=== PATIENT | female | born 1945 | race Caucasian/White ===

== ENCOUNTER → 2023-11-13 22:00 | Outpatient (REF) | payer MEDICARE, SELFPAY | LOC: DHSLP 22:00 | PROVIDERS: ATTENDING PHYSICIAN Internal Medicine Critical Care Medicine; FAMILY PHYSICIAN Family Medicine | DX: G47.33 Obstructive sleep apnea (adult) (pediatric) (principal); R09.02 Hypoxemia | CPT/HCPCS: 95800 ==

== ENCOUNTER 2024-03-01 10:49 | Emergency (ER) | payer MEDICARE, SELFPAY ==
[2024-03-01 11:01] VITALS: BP 137/76
[2024-03-01 11:18] VITALS: BP 136/82
--- NOTE | 2024-03-01 11:38 | ED.GENMED ---
History of Present Illness
General
Chief Complaint: Breathing Problem
Source: patient
Exam Limitations: none
Time Seen by Provider: 03/01/24 11:26
History of Present Illness
History of Present Illness:
78-year-old female with remote history of pneumonia and asthma presents with progressively worsening dyspnea on exertion over the past week. She also notes occasional chest pressure. She has been coughing. She thinks he may have had a fever at
the onset of her symptoms but has not had one recently. She denies any leg swelling or calf pain. No vomiting. No hemoptysis. She is accompanied by her friend. No other complaints at this
Past History
Past History
ED Past Medical History: Asthma, GERD, HTN, Hypothyroidism, Psychiatric and Other (Mitral valve prolapse, Vertigo)
ED Past Surgical History: None
Social History
Tobacco: Non-smoker
Alcohol: None
Drug: None
Personal: Single
Living: alone
Phy Exam
Physical Exam
Physical Exam:
General: Well-appearing nontoxic female no acute respiratory distress
HEENT: Normocephalic atraumatic
Heart: Regular rate and rhythm
Lungs: Subtle end expiratory wheeze bilaterally
Extremities: No cyanosis or edema skin: Warm no rash
Scores
Heart Failure Risk
Heart Failure Risk Score: Not Applicable
Course
Orders/Labs/Results
Orders:
Orders
03/01/24 10:51
Electrocardiogram (*1) Urgent
Reason for Study: Shortness of Breath
EKG- Treatment ONCE
03/01/24 11:36
CT Chest Pe Study Urgent
Comment:
Reason For Exam: sob, chest pressure
Ipratropium/Albuterol Sulfate [Duoneb] 3 ml INH R NOW STA
03/01/24 11:50
Complete Blood Count/With Diff Urgent
Comprehensive Metabolic Panel Urgent
NT-proBNP Urgent
Troponin I Urgent
03/01/24 11:57
Diphenhydramine [Benadryl] 50 mg IV NOW STA
Hydrocortisone Sod Succinate [Solu-Cortef] 200 mg IV NOW STA
Abnormal Lab Results
03/01/24
11:50
MCH 32.1 H pg
(27.0-31.0)
Absolute Monos (auto) 0.7 H 10^3/uL
(0.1-0.6)
Monocytes % 11.7 H %
(1.7-9.3)
BUN 24 H mg/dl
(7-17)
Glucose 109 H mg/dl
(70-99)
03/01/24 11:50
03/01/24 11:50
Vital Signs
Initial and Last Documented VS:
Initial Vital Signs
Temp Pulse Resp BP Pulse Ox
97.9 F 76 20 137/76 95
03/01/24 11:01 03/01/24 11:01 03/01/24 11:01 03/01/24 11:01 03/01/24 11:01
Last Documented Vital Signs
Temp Pulse Resp BP Pulse Ox
97.9 F 74 32 112/75 94
03/01/24 11:01 03/01/24 15:00 03/01/24 15:00 03/01/24 15:00 03/01/24 15:00
MDM/Problems Addressed
Differential Diagnosis Includes:
Shortness of breath with exertion. Differential could include asthma versus COPD versus heart failure vs PE.
EKG shows sinus rhythm without ischemic changes. Do not suspect ACS but troponin is pending. BNP pending. Will order PE study
*Critical Care Note
Total Time (30-74mins, 75-104mins- exclusive of procedures): Not Applicable
Update Note
Update Note:
Patient reevaluated. She is feeling much better after the DuoNeb. No reaction noted with CT with IV contrast after getting pretreated. CT demonstrates no pulmonary embolism. Or pneumonia. Suspect underlying flare of asthma or COPD. There is no
respiratory distress here she is not hypoxic. Will advise she use her inhaler. Will also prescribe 5 days of prednisone. Advise she follow-up with her doctor. No indication for admission
ED Attending Note
-
Portions of this chart may have been created with voice recognition software.� Occasional wrong word or��sound alike� substitutions may have occurred due to the inherent limitations of voice recognition software.
Discharge Plan
Departure
Patient Disposition: Home (Routine Discharge)
Date of Disposition: 03/01/24
Time of Disposition: 15:22
Patient with high blood pressure during this ER visit?: No
Discharge Problem:
Acute bronchitis
Instructions: Exacerbation of COPD (DC)
Prescriptions:
New
prednisone 20 mg tablet
40 mg PO DAILY 5 Days Qty: 10 0RF
No Action
levothyroxine 75 MCG tablet
75 mcg PO DAILY
albuterol sulfate 2.5 MG/3 ML solution for nebulization
1 - 2 puff PUFF PRN PRN (Reason: sob)
diltiazem HCl [Cardizem CD] 180 MG capsule,extended release 24hr
180 mg PO DAILY
omeprazole 20 MG tablet,delayed release (DR/EC)
20 mg PO DAILY
prednisone 50 MG tablet
50 mg PO DAILY Qty: 4 0RF
benzonatate 100 MG capsule
100 mg PO TIDPRN PRN (Reason: cough) Qty: 14 0RF
albuterol sulfate [Proventil HFA] 90 MCG/PUFF HFA aerosol inhaler
1 puff inhalation Q4HPRN PRN (Reason: shortness of breath) Qty: 0 0RF
methylprednisolone [Medrol (Link)] 4 mg tablets,dose pack
See Rx Instructions .ROUTE .COMPLEX Qty: 21 0RF
Rx Instructions:
orally per package directions
albuterol sulfate 90 mcg/actuation aerosol powdr breath activated
2 inh inhalation QID PRN (Reason: shortness of breath or wheezing) Qty: 1 0RF
prednisone 20 mg tablet
40 mg PO DAILY 4 Days Qty: 8 0RF
Referrals:
UNKNOWN - PT DOES,NOT KNOW [Family Provider] -
Activity Restrictions/Additional Instructions:
Use prednisone as directed. Use inhaler up to 4 times a day as needed for shortness of breath. Return if worse otherwise follow-up with your doctor
Interventions
Interventions:
ED- Cardiac Assessment Last Done: 03/01/24 12:56
ED- Pulmonary Assessment Last Done: 03/01/24 12:56
Discharge Date and Time
Print Language: PERSIAN
[2024-03-01] MEDS: DUONEB 3 ML INH (11:47)
[2024-03-01 11:57] LABS: % Basophils 0.5 % (0-2); % Eosinophils 4.7 % (0-6); % Immature Granulocytes 0.2 % (0-0.5); % Lymphocytes 24.6 % (20.5-51.1); % Monocytes 11.7 % (1.7-9.3); % Neutrophils 58.3 % (42.2-75.2); Absolute Eosinophils 0.3 10^3/uL (0-0.7); Absolute Lymphocytes 1.4 10^3/uL (1.2-3.4); Absolute Monocytes 0.7 10^3/uL (0.1-0.6); Absolute Neutrophils 3.3 10^3/uL (1.4-6.5); Mean Corp Hgb Conc. 35.7 g/dL (33.0-37.0); Mean Corpuscular Hgb 32.1 pg (27.0-31.0); Mean Corpuscular Volume 89.7 fL (81.0-99.0); Mean Platelet Volume 8.8 fL (7.4-10.4); Nucleated Red Blood Cells % 0 %; Platelet Count 207 10^3/uL (130-400); Red Blood Cell Count 4.68 10^6/uL (4.20-5.40); Red Cell Dist. Width 12.4 % (11.5-14.5); White Blood Cell Count 5.7 10^3/uL (4.8-10.8)
[2024-03-01 12:00] VITALS: BP 116/73
[2024-03-01] MEDS: BENADRYL 50 MG IV (12:01)
[2024-03-01] MEDS: SOLU-CORTEF 200 MG IV (12:02)
[2024-03-01 12:11] LABS: ALT (SGPT) 22 U/L (0-35); AST (SGOT) 28 U/L (14-36); Alkaline Phosphatase 84 U/L (38-126); Blood Urea Nitrogen 24 mg/dl (7-17); Calcium 9.3 mg/dl (8.4-10.2); Carbon Dioxide 23 mmol/L (22-30); Chloride 107 mmol/L (98-107); Glucose 109 mg/dl (70-99); Potassium 4.2 mmol/L (3.5-5.1); Sodium 140 mmol/L (135-145); Total Bilirubin 0.6 mg/dl (0.2-1.3); Total Protein 6.6 g/dl (6.3-8.2); eGFR > 60.00
[2024-03-01 12:21] LABS: NT-proBNP < 20.0 pg/ml; Troponin I < 0.012 ng/ml
[2024-03-01 13:52] VITALS: BP 129/89
[2024-03-01 14:00] VITALS: BP 136/82
[2024-03-01 15:00] VITALS: BP 112/75
== END 2024-03-01 15:35 | disposition home or self-care (01) ==
LOC: EMR 10:49
PROVIDERS: Physician Assistant; EMERGENCY PHYSICIAN Student in an Organized Health Care Education/Training Program
DX: J20.9 Acute bronchitis, unspecified (principal); E03.9 Hypothyroidism, unspecified; I10 Essential (primary) hypertension; J45.909 Unspecified asthma, uncomplicated; K21.9 Gastro-esophageal reflux disease without esophagitis
CPT/HCPCS: 94640; 96374; 96375; 99284; 71275; 80053; 83880; 84484; 85025; 93005; Q9967

== ENCOUNTER 2024-04-26 22:06 | Observation (INO) | payer MEDICARE, SELFPAY ==
[2024-04-26 15:14] VITALS: BP 138/76
[2024-04-26 15:45] LABS: % Basophils 0.3 % (0-2); % Eosinophils 3.1 % (0-6); % Immature Granulocytes 0.3 % (0-0.5); % Lymphocytes 25.1 % (20.5-51.1); % Monocytes 18.5 % (1.7-9.3); % Neutrophils 52.7 % (42.2-75.2); Absolute Eosinophils 0.2 10^3/uL (0-0.7); Absolute Lymphocytes 1.5 10^3/uL (1.2-3.4); Absolute Monocytes 1.1 10^3/uL (0.1-0.6); Hematocrit 48.8 % (37.0-47.0); Hemoglobin 16.9 g/dL (12.0-16.0); Mean Corp Hgb Conc. 34.6 g/dL (33.0-37.0); Mean Corpuscular Hgb 31.5 pg (27.0-31.0); Mean Platelet Volume 9.4 fL (7.4-10.4); Nucleated Red Blood Cells % 0 %; Platelet Count 227 10^3/uL (130-400); Red Blood Cell Count 5.36 10^6/uL (4.20-5.40); Red Cell Dist. Width 12.7 % (11.5-14.5); White Blood Cell Count 5.8 10^3/uL (4.8-10.8)
[2024-04-26 16:04] LABS: ALT (SGPT) 29 U/L (0-35); AST (SGOT) 31 U/L (14-36); Albumin 4.6 g/dl (3.5-5.0); Alkaline Phosphatase 86 U/L (38-126); Blood Urea Nitrogen 27 mg/dl (7-17); Calcium 9.3 mg/dl (8.4-10.2); Carbon Dioxide 14 mmol/L (22-30); Chloride 107 mmol/L (98-107); Glucose 117 mg/dl (70-99); Potassium 3.8 mmol/L (3.5-5.1); Sodium 136 mmol/L (135-145); Total Bilirubin 0.5 mg/dl (0.2-1.3); Total Protein 7.3 g/dl (6.3-8.2); eGFR > 60.00
--- NOTE | 2024-04-26 19:15 | ED.GENMED ---
History of Present Illness
General
Chief Complaint: Abdominal Symptoms
Source: patient
Exam Limitations: none
Time Seen by Provider: 04/26/24 19:03
History of Present Illness
History of Present Illness:
78-year-old female otherwise quite healthy presents with 3 to 4 days worth of nausea vomiting and diarrhea. She cannot keep anything down or in. No measurable fever. She denies abdominal pain chest pain or shortness of breath. She notes overall
fatigue. No urinary symptoms. She denies any blood in the vomit or the stool. No other complaints at this time
Past History
Past History
ED Past Medical History: Asthma, GERD, HTN, Hypothyroidism, Psychiatric and Other (Mitral valve prolapse, Vertigo)
ED Past Surgical History: None
Social History
Tobacco: Non-smoker
Alcohol: None
Drug: None
Personal: Single
Living: alone
Phy Exam
Physical Exam
Physical Exam:
General: Well-appearing female no acute respiratory distress
HEENT: Normocephalic mucosa dry neck is supple
Heart: Regular rate and rhythm
Lungs: Clear
Abd: Soft nontender nondistended
Extremities: No cyanosis or edema
Skin warm no rash
Course
Orders/Labs/Results
Orders:
Orders
04/26/24 15:30
Complete Blood Count/With Diff Urgent
Comprehensive Metabolic Panel Urgent
04/26/24 19:11
0.9% Sodium Chloride 1000 ml [Nss] 1,000 ml IV BOLUS
Famotidine [Pepcid] 20 mg IV NOW STA
04/26/24 19:16
Ondansetron Injectable [Zofran] 4 mg IV NOW STA
04/26/24 19:21
Norovirus by PCR Urgent
SAMANTHA Source: Feces/Stool
Specimen Description:
STOOL [C difficile Antigen & Toxins] Urgent
SAMANTHA Source: Feces/Stool
Specimen Description:
Stool Culture Urgent
SAMANTHA Source: Feces/Stool
Specimen Description:
Abnormal Lab Results
04/26/24
15:30
Hgb 16.9 H g/dL
(12.0-16.0)
Hct 48.8 H %
(37.0-47.0)
MCH 31.5 H pg
(27.0-31.0)
Absolute Monos (auto) 1.1 H 10^3/uL
(0.1-0.6)
Monocytes % 18.5 H %
(1.7-9.3)
Carbon Dioxide 14 L* mmol/L
(22-30)
BUN 27 H mg/dl
(7-17)
Glucose 117 H mg/dl
(70-99)
04/26/24 15:30
04/26/24 15:30
Vital Signs
Initial and Last Documented VS:
Initial Vital Signs
Temp Pulse Resp BP Pulse Ox
98.3 F 84 20 138/76 95
04/26/24 15:14 04/26/24 15:14 04/26/24 15:14 04/26/24 15:14 04/26/24 15:14
Last Documented Vital Signs
Temp Pulse Resp BP Pulse Ox
98.3 F 84 20 138/76 95
04/26/24 15:14 04/26/24 15:14 04/26/24 15:14 04/26/24 15:14 04/26/24 15:14
MDM/Problems Addressed
Differential Diagnosis Includes:
Patient with nausea vomiting diarrhea for 3 days. Feeling fatigued. Looks dry on exam. She is acidotic with a bicarb of 14. White count is normal.
I suspect dehydration likely secondary to recent GI illness. Fluids ordered Pepcid and Zofran ordered
*Critical Care Note
Total Time (30-74mins, 75-104mins- exclusive of procedures): Not Applicable
Update Note
Update Note:
Patient will be admitted to hospital for acute dehydration and acidosis in the setting of GI illness. No stool samples provided at this time
ED Attending Note
-
Portions of this chart may have been created with voice recognition software.� Occasional wrong word or��sound alike� substitutions may have occurred due to the inherent limitations of voice recognition software.
Discharge Plan
Departure
Patient Disposition: Admit
Date of Disposition: 04/26/24
Time of Disposition: 20:17
Presentation/result/management discussed w/ accepting MD/DO: Hospitalist
Discharge Problem:
Acute dehydration
Prescriptions:
No Action
levothyroxine 75 MCG tablet
75 mcg PO DAILY
albuterol sulfate 2.5 MG/3 ML solution for nebulization
1 - 2 puff PUFF PRN PRN (Reason: sob)
diltiazem HCl [Cardizem CD] 180 MG capsule,extended release 24hr
180 mg PO DAILY
omeprazole 20 MG tablet,delayed release (DR/EC)
20 mg PO DAILY
prednisone 50 MG tablet
50 mg PO DAILY Qty: 4 0RF
benzonatate 100 MG capsule
100 mg PO TIDPRN PRN (Reason: cough) Qty: 14 0RF
albuterol sulfate [Proventil HFA] 90 MCG/PUFF HFA aerosol inhaler
1 puff inhalation Q4HPRN PRN (Reason: shortness of breath) Qty: 0 0RF
methylprednisolone [Medrol (Link)] 4 mg tablets,dose pack
See Rx Instructions .ROUTE .COMPLEX Qty: 21 0RF
Rx Instructions:
orally per package directions
albuterol sulfate 90 mcg/actuation aerosol powdr breath activated
2 inh inhalation QID PRN (Reason: shortness of breath or wheezing) Qty: 1 0RF
prednisone 20 mg tablet
40 mg PO DAILY 4 Days Qty: 8 0RF
prednisone 20 mg tablet
40 mg PO DAILY 5 Days Qty: 10 0RF
Interventions
Interventions:
*Risk Screen - Suicide Last Done: 04/26/24 15:14
*General Assessment Last Done: 04/26/24 15:14
*Neglect/Abuse Screening Last Done: 04/26/24 15:14
Discharge Date and Time
Print Language: [place] CITIZEN
[2024-04-26] MEDS: NSS 1000 IV ×2 (19:19→22:28)
[2024-04-26] MEDS: ZOFRAN 4 MG IV (19:20)
[2024-04-26] MEDS: PEPCID 20 MG IV (19:20)
--- NOTE | 2024-04-26 21:07 | HPS.HSE ---
Family Physician
-
Family Physician:
Chief Complaint
-
Vomiting and Diarrhea
History of Present Illness
Patient is an 78 y/o female past medical history of palpitations, hypothyroidism and anxiety who presents with vomiting and diarrhea. Patient is reports Friday evening she developed vomiting and diarrhea. She reports only being able to tolerate a
small sips for the past three days. She denies fevers, sweats or chills. She denies abdominal pain.
Medical History
Past Medical History
Past Medical History: Reports Other
Additional Past Medical History:
Palpitations
Mild Intermittent Asthma
Hyperlipidemia
Hypothyroidism
Anxiety
GERD / PUD
Obstructive Sleep Apnea
Past Surgical History: Reports Other
Additional Past Surgical History:
Appendectomy
Bunion Removal
Tonsillectomy
Social History
Tobacco: Non-smoker
Living: Alone
Family History
Family History: Not pertinent
Allergies / Home Medications
Allergies reflects when Allergies were last updated in [facility].
Home Medications with original date entered in [facility]
Allergy/Medication List:
Allergies
Allergy/AdvReac Type Severity Reaction Status Date / Time
iodine [Iodine] Allergy Hives Verified 04/26/24 15:18
Penicillins Allergy Hives Verified 04/26/24 15:18
mold Allergy Unknown Uncoded 04/26/24 15:18
Home Medications
levothyroxine 75 mcg tablet 75 mcg PO DAILY 06/28/12
diltiazem HCl 180 mg capsule,extended release 24 hr (Cardizem CD) 180 mg PO NOON 05/10/14
omeprazole 20 mg tablet,delayed release 20 mg PO DAILYPRN PRN stomach issues 05/10/14
albuterol sulfate 90 mcg/actuation breath activated powder inhaler 2 inh inhalation R Q6HPRN PRN shortness of breath or wheezing 04/26/24
cetirizine 10 mg tablet (Zyrtec) 10 mg PO DAILYPRN PRN allergies 04/26/24
montelukast 10 mg tablet 10 mg PO DAILYPRN PRN sinus congestion 04/26/24
pravastatin 40 mg tablet 40 mg PO HS 04/26/24
sertraline 25 mg tablet 25 mg PO HS 04/26/24
Review of Systems
-
A 12 point ROS was completed and negative except as noted: Yes
Constitutional: Denies Fever or Chills
Respiratory: Denies Cough or Trouble Breathing
Cardiac: Denies Chest Pain or Palpitations
Abdomen/GI: Reports See HPI
Physical Exam
Vital Signs
Vital Signs
Temp Pulse Resp BP Pulse Ox
98.3 F 84 20 138/76 95
04/26/24 15:14 04/26/24 15:14 04/26/24 15:14 04/26/24 15:14 04/26/24 15:14
Physical Exam
General: Comfortable and Conversant
HEENT: NormoCephalic, Anicteric and Atraumatic
Respiratory: Clear and Non Labored Respirations
Cardiac: S1/S2 and Regular Rhythm
GI: Soft and Non Tender
Rectal: Deferred by Provider
Musculoskeletal: No Clubbing, No Cyanosis and No Edema
Skin: Warm and Dry
Neuro: Awake, Alert, Oriented and Nonfocal/grossly intact
Psych: Calm
Laboratory Results
-
04/26/24 15:30
04/26/24 15:30
Laboratory Results
Total Bilirubin 0.5 mg/dl (0.2-1.3) 04/26/24 15:30
AST 31 U/L (14-36) 04/26/24 15:30
ALT 29 U/L (0-35) 04/26/24 15:30
Alkaline Phosphatase 86 U/L (38-126) 04/26/24 15:30
Data Reviewed
-
Lab Data: Labs Reviewed by me
Impression/Plan
-
Acute Metabolic Acidosis secondary to severe volume depletion in setting of acute GI illness
-Give 50meq sodium bicarb IV Now
-Continue IVFs with NSS
-Recheck labs in AM
Acute Gastroenteritis
-Continue supportive care with anti-emetics
-Allow clear liquids
-Check stool studies
Palpitations
-Continue diltiazem
Hyperlipidemia
-Continue pravastatin
Hypothyroidism
-Continue levothyroxine
Generalized Anxiety Disorder
-Continue sertraline
DVT proph: SCDs
Code Status: Full Code
[2024-04-26 21:12] VITALS: BP 114/69
--- NOTE | 2024-04-26 22:29 | W.PN.UPDATE ---
Update Note
Progress Note Update
This is an addendum to the H&P written by Evelyne Mccray on 04/26/2024. Patient seen and examined independently with PA.
78-year-old female past medical history of palpitations, hypothyroidism, GERD, anxiety/depression, presenting with vomiting, diarrhea for the past 4 days. Labs show metabolic acidosis and hemoconcentration secondary to hypovolemia.
Patient likely with acute viral gastroenteritis.
IV fluids. Bicarb push. Clear liquid diet. Stool studies pending if still having diarrhea. Zofran.
[2024-04-26] MEDS: SODIUM BICARBONATE 50 MEQ IV (22:35)
[2024-04-26 22:39] VITALS: BMI 27.0
[2024-04-26 22:52] VITALS: BP 113/63
[2024-04-26 23:00] VITALS: BP 112/64
[2024-04-27 00:25] VITALS: BP 104/60
[2024-04-27] MEDS: PRAVACHOL PO (01:44)
[2024-04-27] MEDS: ZOLOFT PO (01:44)
[2024-04-27] MEDS: SYNTHROID 75 MCG PO (06:16)
[2024-04-27 06:42] LABS: Hematocrit 44.2 % (37.0-47.0); Hemoglobin 15.2 g/dL (12.0-16.0); Mean Corp Hgb Conc. 34.4 g/dL (33.0-37.0); Mean Corpuscular Hgb 31.5 pg (27.0-31.0); Mean Corpuscular Volume 91.5 fL (81.0-99.0); Mean Platelet Volume 9.4 fL (7.4-10.4); Platelet Count 208 10^3/uL (130-400); Red Blood Cell Count 4.83 10^6/uL (4.20-5.40); Red Cell Dist. Width 12.6 % (11.5-14.5)
[2024-04-27 07:24] LABS: Blood Urea Nitrogen 22 mg/dl (7-17); Calcium 8.6 mg/dl (8.4-10.2); Carbon Dioxide 17 mmol/L (22-30); Chloride 111 mmol/L (98-107); Estimated Creatinine Clearance 62 ml/min; Glucose 89 mg/dl (70-99); Magnesium 1.9 mg/dl (1.6-2.3); Potassium 4.4 mmol/L (3.5-5.1); Sodium 140 mmol/L (135-145); eGFR > 60.00
--- NOTE | 2024-04-27 07:59 | W.PN.HOSP.TC ---
Today's Communication/Plan
-
Supportive care
Clear liquid diet advance as tolerated
Repeat labs in a.m.
Assessment / Plan
Assessment / Plan
78-year-old female with vomiting and diarrhea started Friday. Patient did admit to having a takeout on Friday and then the vomiting started.
She is feeling [place] better
Cardiovascular system S1-S2 appreciated
Chest clear to auscultation
Abdomen soft and nontender
No pedal edema
# Acute gastroenteritis secondary to norovirus
Stool studies for culture and C. difficile-pending
Supportive care IV fluids
Clear liquid diet
Advance diet as tolerated to low residue diet
# Acute metabolic acidosis secondary to severe volume depletion in the setting of gastroenteritis
Bicarb given in the ER
Continue IV fluids
Add p.o. bicarb
# Palpitations-continue Cardizem
# Hyperlipidemia-continue pravastatin
# Hypothyroidism-continue levothyroxine
# Generalized anxiety disorder-continue sertraline
# Chronic vertigo
# Asthma NOS-on as needed albuterol and Singulair
# History of peptic ulcer disease on as needed Prilosec
# DVT prophylaxis-SCDs
# Full code
Anticipated Discharge: Within 24 hours
Subjective/Interval History
-
Date of Service: April 27, 2024
Objective Data
-
Labs:
Laboratory Results
04/27/24
06:32
WBC 6.0
Hgb 15.2
Hct 44.2
Plt Count 208
Sodium 140
Potassium 4.4
Chloride 111 H
Carbon Dioxide 17 L
BUN 22 H
Creatinine 0.7
Glucose 89
Calcium 8.6
Vital Signs:
Vital Signs
Temp Pulse Resp BP Pulse Ox
98.2 F 93 18 113/63 93
04/26/24 22:52 04/26/24 22:52 04/26/24 22:52 04/26/24 22:52 04/26/24 22:52
[2024-04-27] MEDS: NSS 1000 IV ×2 (09:15→17:20)
[2024-04-27 10:26] VITALS: BP 105/71
[2024-04-27 12:41] VITALS: BP 131/72
[2024-04-27 12:42] VITALS: BMI 25.0
[2024-04-27] MEDS: CARDIZEM CD 180 MG PO (12:58)
[2024-04-27 14:12] VITALS: BP 116/64; BP 126/68; BP 128/71; PULSE 61; PULSE 68; PULSE 72
--- NOTE | 2024-04-27 14:14 | PTCARENOTE ---
Received patient from ED via stretcher. AAOx3, ambulated to bed with minimal assistance. Assessed and oriented to room. Call carmona in close reach. Will continue to monitor.
[2024-04-27 15:35] VITALS: BP 128/73
[2024-04-27] MEDS: SODIUM BICARBONATE 650 MG PO ×2 (17:20→21:03)
[2024-04-27] MEDS: ZOLOFT 25 MG PO (21:03)
[2024-04-27] MEDS: PRAVACHOL 40 MG PO (21:03)
[2024-04-27 23:43] VITALS: BP 115/53; BP 117/64; BP 118/68; PULSE 65; PULSE 70; PULSE 74
[2024-04-28] MEDS: NSS 1000 IV (03:25)
[2024-04-28] MEDS: SYNTHROID 75 MCG PO (05:47)
[2024-04-28 07:02] VITALS: BP 125/65
[2024-04-28 08:23] LABS: Blood Urea Nitrogen 12 mg/dl (7-17); Calcium 8.5 mg/dl (8.4-10.2); Carbon Dioxide 21 mmol/L (22-30); Chloride 108 mmol/L (98-107); Estimated Creatinine Clearance 61 ml/min; Glucose 88 mg/dl (70-99); Magnesium 1.8 mg/dl (1.6-2.3); Potassium 4.1 mmol/L (3.5-5.1); Sodium 135 mmol/L (135-145); eGFR > 60.00
[2024-04-28] MEDS: SODIUM BICARBONATE 650 MG PO (08:30)
[2024-04-28] MEDS: CARDIZEM CD 180 MG PO (11:24)
[2024-04-28 11:34] VITALS: BP 122/62; BP 127/72; BP 128/68; PULSE 62; PULSE 68; PULSE 78
[2024-04-28 15:00] VITALS: BP 123/68
--- NOTE | 2024-04-28 15:04 | W.PN.HOSP.TC ---
Today's Communication/Plan
-
Discharge home
Assessment / Plan
Assessment / Plan
78-year-old female with vomiting and diarrhea started Friday. Patient did admit to having a takeout on Friday and then the vomiting started.
She is feeling Much better, no diarrhea. Tolerating diet
Cardiovascular system S1-S2 appreciated
Chest clear to auscultation
Abdomen soft and nontender
No pedal edema
# Acute gastroenteritis secondary to norovirus
Stool studies for culture pending and C. difficile-negative
Tolerating solid diet
# Acute metabolic acidosis secondary to severe volume depletion in the setting of gastroenteritis
Much better
# Palpitations-continue Cardizem
# Hyperlipidemia-continue pravastatin
# Hypothyroidism-continue levothyroxine
# Generalized anxiety disorder-continue sertraline
# Chronic vertigo
# Asthma NOS-on as needed albuterol and Singulair
# History of peptic ulcer disease on as needed Prilosec
# DVT prophylaxis-SCDs
# Full code
Discussed with nursing
Anticipated Discharge: Today
Subjective/Interval History
-
Date of Service: April 28, 2024
Objective Data
-
Labs:
Laboratory Results
04/28/24
07:04
Sodium 135
Potassium 4.1
Chloride 108 H
Carbon Dioxide 21 L
BUN 12
Creatinine 0.7
Glucose 88
Calcium 8.5
Vital Signs:
Vital Signs
Temp Pulse Resp BP Pulse Ox
98.2 F 65 16 125/65 96
04/28/24 07:02 04/28/24 07:02 04/28/24 07:02 04/28/24 07:02 04/28/24 08:20
I&O
04/27/24 04/28/24 04/29/24
06:59 06:59 06:59
Intake Total 1200 / 1200
Balance 1200 / 1200
--- NOTE | 2024-04-28 15:07 | W.DS.TRANS ---
Addendum entered and electronically signed by Dimas Winter MD 04/28/24 15:54:
Dictation- [id number]
Original Note:
DC Summary - [employer]
-
Discharge Instructions:
Discharge Diagnosis/Procedures Norovirus infection-gastroenteritis
High cholesterol
Hypothyroidism
Anxiety
Asthma
Diet As tolerated
Activity As tolerated
Driving Restrictions As prior to admission
Instructions:
Stand-Alone Forms:
Changes to Home Medications: No
Discharge Medications:
DC Medications w/original date entered in [facility]
omeprazole 20 mg tablet,delayed release 20 mg PO DAILYPRN PRN stomach issues 05/10/14
albuterol sulfate 90 mcg/actuation breath activated powder inhaler 2 inh inhalation R Q6HPRN PRN shortness of breath or wheezing 04/26/24
cetirizine 10 mg tablet (Zyrtec) 10 mg PO DAILYPRN PRN allergies 04/26/24
montelukast 10 mg tablet 10 mg PO DAILYPRN PRN sinus congestion 04/26/24
diltiazem HCl 180 mg capsule,extended release 24 hr (Cardizem CD) 180 mg PO NOON Blood pressure #0 caps 04/28/24
levothyroxine 75 mcg tablet 75 mcg PO DAILY Thyroid #0 tabs 04/28/24
pravastatin 40 mg tablet 40 mg PO HS High cholesterol #0 tabs 04/28/24
sertraline 25 mg tablet 25 mg PO HS Mental Health/Anxiety #0 tabs 04/28/24
Home Medication Changes
Pending Results: Yes
Additional Pending Results:
stool CX
--- NOTE | 2024-04-28 15:33 | CM ---
CM spoke with Nasrin to complete IA. She was admitted with gastroenteritis yesterday and ready for discharge to home today. Pt's friend will drive her home.
Nasrin lives alone [place] style home with 1 entry step. She has a RW, but does not use it; she ambulates independently and is (I) ADLs.
Nasrin denied any discharge planning needs.
Plan: Discharge to home with no identified needs.
PCP: Leo Wood
Pharmacy: [facility]
== END 2024-04-28 16:34 | disposition home or self-care (01) ==
LOC: 4 EAST ACU 22:06
PROVIDERS: Physician Assistant Medical; Registered Nurse; ADMITTING PHYSICIAN Hospitalist; ATTENDING PHYSICIAN Hospitalist; EMERGENCY PHYSICIAN Student in an Organized Health Care Education/Training Program; FAMILY PHYSICIAN Family Medicine
DX: A08.11 Acute gastroenteropathy due to Norwalk agent (principal); E87.21 Acute metabolic acidosis; R10.9 Unspecified abdominal pain; R11.2 Nausea with vomiting, unspecified; R19.7 Diarrhea, unspecified; E86.0 Dehydration; R53.83 Other fatigue; R00.2 Palpitations; J45.20 Mild intermittent asthma, uncomplicated; I10 Essential (primary) hypertension; E03.9 Hypothyroidism, unspecified; E78.00 Pure hypercholesterolemia, unspecified; K21.9 Gastro-esophageal reflux disease without esophagitis; I34.1 Nonrheumatic mitral (valve) prolapse; R42 Dizziness and giddiness; F32.A Depression, unspecified; G47.33 Obstructive sleep apnea (adult) (pediatric); F41.1 Generalized anxiety disorder; Z79.890 Hormone replacement therapy; Z79.51 Long term (current) use of inhaled steroids; Z79.52 Long term (current) use of systemic steroids; Z87.11 Personal history of peptic ulcer disease; Z91.041 Radiographic dye allergy status; Z88.0 Allergy status to penicillin; Z60.2 Problems related to living alone
CPT/HCPCS: 80048; 80053; 83735; 85025; 85027; 87045; 87046; 87324; 87427; 87449; 87798; 96361; 96375; 99285; G0378

== ENCOUNTER 2024-12-07 11:11 | Outpatient (RCR) | payer MEDICARE, SELFPAY | END 2024-12-07 23:59 | disposition home or self-care (01) | LOC: RPT 11:11 | PROVIDERS: ATTENDING PHYSICIAN Internal Medicine | DX: M54.41 Lumbago with sciatica, right side (principal); M79.604 Pain in right leg; Z73.6 Limitation of activities due to disability | CPT/HCPCS: 97010; 97110; 97140; 97162; 97535 ==

== ENCOUNTER → 2025-01-15 12:38 | Outpatient (REF) | payer MEDICARE, SELFPAY | LOC: WDC 12:38 | PROVIDERS: ATTENDING PHYSICIAN Internal Medicine; FAMILY PHYSICIAN Family Medicine | DX: Z12.31 Encounter for screening mammogram for malignant neoplasm of breast (principal) | CPT/HCPCS: 77063; 77067 ==

== ENCOUNTER → 2025-03-22 06:36 | Outpatient (REF) | payer MEDICARE, SELFPAY | LOC: MRI 3T 06:36 | PROVIDERS: ATTENDING PHYSICIAN Orthopaedic Surgery Orthopaedic Surgery of the Spine; FAMILY PHYSICIAN Internal Medicine | DX: M48.062 Spinal stenosis, lumbar region with neurogenic claudication (principal) | CPT/HCPCS: 72148 ==

== ENCOUNTER → 2025-03-23 07:06 | Outpatient (REF) | payer MEDICARE, SELFPAY | LOC: MRI 3T 07:06 | PROVIDERS: ATTENDING PHYSICIAN Orthopaedic Surgery Orthopaedic Surgery of the Spine | DX: M54.2 Cervicalgia (principal) | CPT/HCPCS: 72141 ==

== ENCOUNTER → 2025-04-04 08:49 | Outpatient (REF) | payer MEDICARE, SELFPAY | LOC: RAD 08:49 | PROVIDERS: ATTENDING PHYSICIAN Internal Medicine | DX: M53.3 Sacrococcygeal disorders, not elsewhere classified (principal) | CPT/HCPCS: 78306; A9503 ==